=== PATIENT | male | born 1965 | race Caucasian/White ===

== ENCOUNTER → 2021-08-13 | Outpatient (CLI) | payer OTHER, SELFPAY ==
--- NOTE | 2021-08-13 | PROSBIL_PTH ---
PATIENT: VIRGEN DSOUZA V LOC: [facility] U#:[id number] AGE/SX: 56/M ROOM: RE08/13/[address]: Dr. Narinder Franks MD : 1965 BED: DIS: 08/13/2021 SPEC #: [id number] RECD: 08/14/21 10:25 STATUS: PARISH REPia #: [id number] ANN-MARIE: 08/13/21 00:[address]: Narinder Franks DEPT: SURGICAL PATHOLOGY RECD BY: Hao Aguirre ENTERED: 08/14/21 10:26 SP TYPE: PROST BX OT DR: CLARENCE Tavares Tissues: A - PROSTATE RIGHT B - PROSTATE RIGHT C - PROSTATE RIGHT D - PROSTATE LEFT E - PROSTATE LEFT F - PROSTATE LEFT Procedures: PROSTATE BX HEADER OPERATION: Prostate biopsy PRE-OP DIAGNOSIS: Elevated PSA TISSUE SUBMITTED: A - Right apex, B - Right mid, C - Right base, D - Left apex, E - Left mid, F - Left base MICROSCOPIC DIAGNOSIS A. Right prostate, apex, core biopsy: Adenocarcinoma. [place] grade: 9 (5+4) Cores involved: 1 out of 1 core Tissue involved: 95% Greatest tumor length: 7.5 millimeters Perineural invasion: Present B. Right prostate, mid, core biopsy: Adenocarcinoma. [place] grade: 9 (5+4) Cores involved: 1 out of 1 core Tissue involved: 80% Greatest tumor length: 9.5 millimeters Perineural invasion: Present C. Right prostate, base, core biopsy: Adenocarcinoma. [place] grade: 8 (5+3) Cores involved: 1 out of 1 core Tissue involved: 65% Greatest tumor length: 3.5 millimeters D. Left prostate, apex, core biopsy: Chronic inflammation. See comment. E. Left prostate, mid, core biopsy: Mild chronic inflammation. F. Left prostate, base, core biopsy: Focal atypical small acinar proliferation. Chronic inflammation. See comment. AM:deisi 08/15/2021 COMMENT D & F. Immunohistochemistry ([id number]) supports the above diagnosis. MICROSCOPIC DESCRIPTION Slides are reviewed. GROSS DESCRIPTION A - Received is one container designated prostate, right apex. The specimen consists of one elongated fragment of light waggoner-white soft tissue measuring 1 cm in length and 0.1 cm in diameter. The specimen is totally submitted in one cassette. B - Received is one container designated prostate, right mid. The specimen consists of one elongated fragment of light waggoner-white soft tissue measuring 1 cm in length and 0.1 cm in diameter. The specimen is totally submitted in one cassette. C - Received is one container designated prostate, right base. The specimen consists of one elongated fragment of light waggoner-white soft tissue measuring 0.6 cm in length and 0.1 cm in diameter. The specimen is totally submitted in one cassette. D - Received is one container designated prostate, left apex. The specimen consists of one elongated fragment of light waggoner-white soft tissue measuring 0.8 cm in length and 0.1 cm in diameter. The specimen is totally submitted in one cassette. E - Received is one container designated prostate, left mid. The specimen consists of one elongated fragment of light waggoner-white soft tissue measuring 1.5 cm in length and 0.1 cm in diameter. The specimen is totally submitted in one cassette. F - Received is one container designated prostate, left base. The specimen consists of one elongated fragment of light waggoner-white soft tissue measuring 1 cm in length and 0.1 cm in diameter. The specimen is totally submitted in one cassette. / AM:deisi 08/15/2021 TC:0 [facility]: [id number] [phone]
--- NOTE | 2021-08-13 | IMM_PTH ---
PATIENT: VIRGEN DSOUZA V LOC: [facility] U#:[id number] AGE/SX: 56/M ROOM: RE08/13/[address]: Dr. Narinder Franks MD : 1965 BED: DIS: 08/13/2021 SPEC #: [id number] RECD: 08/15/21 14:19 STATUS: PARISH REQ #: [id number] ANN-MARIE: 08/13/21 00:[address]: Narinder Franks DEPT: IMMUNOHISTOCHEMISTRY RECD BY: Alyssa Starr ENTERED: 08/15/21 14:20 SP TYPE: IMMUNO OTHR DR: CLARENCE Tavares Tissues: D - PROSTATE LEFT F - PROSTATE LEFT Procedures: 34BE12 (add) P40 (add) 34BE12 (initial) PHYSICIAN & INSTITUTION [place] [address] SPECIMEN INFORMATION: Tissue Source: D - Left prostate, apex, core biopsy, F - Left prostate, base, core biopsy Clinical Info: Elevated PSA Specimen Number: [id number] D & F CPT code: 61042, 76948 x3 METHODOLOGY: Deparaffinized sections of prefer/formalin-fixed tissue or PAP/DQ stained slides are incubated with monoclonal/polyclonal antibodies/oligonucleotide probes. Localization is made via biotin free immunoperoxidase method. Appropriate controls are performed and reacted as expected. Results on target cell population are indicated in the following table: RESULTS: ANTIBODY / CLONE RESULT Block D P40 (BC28) positive 34BE12 (34BE12) positive Block F P40 (BC28) negative 34BE12 (34BE12) negative These tests were developed and their performance characteristics determined by [facility]. They may not have been cleared or approved by the U.S. Food and Drug Administration. The FDA has determined that such clearance or approval is not necessary. The above immunohistochemical/dualISH markers are ordered and reviewed by the Pathologist. INTERPRETATION: D. Left prostate, apex, core biopsy: Benign prostatic tissue. F. Left prostate, base, core biopsy: Focal atypical small acinar proliferation. AM:deisi 08/16/2021
== END | disposition home or self-care (01) ==
LOC: LABSPEC 16:56
PROVIDERS: PCP Physician Assistant; Visit Provider Urology
DX: C61 Malignant neoplasm of prostate (principal)
CPT/HCPCS: 88305; 88341; 88342; G0416

== ENCOUNTER → 2021-08-28 | Outpatient (CLI) | payer OTHER, SELFPAY ==
--- NOTE | 2021-08-28 09:22 | NM_ITS ---
CLINICAL: Male, 56 years old. PROSTATE CA NEW DX -- *PT VOIDED JUST BEFORE SCAN* -- OPEN HEART ON 08-29-2020 -- FX LEFT HEEL WHOLE BODY NUCLEAR BONE SCAN TECHNIQUE: Following the IV administration of 20.1 mCi of Tc MDP, whole body bone imaging was performed with a gamma camera following a three hour delay. FINDINGS: Low-level increased uptake is seen at both knee joints and shoulder joints as well as the sternal clavicular joints suggestive of degenerative changes. Distended urinary bladder. NM/Bone Scan Whole Body IMPRESSION: No evidence of bony metastasis. Distended urinary bladder. Electronically Signed: Donald Lovelace MD at 14:21 EDT ,
== END | disposition home or self-care (01) ==
LOC: NM 09:13
PROVIDERS: PCP Family Medicine; Visit Provider Urology
DX: C61 Malignant neoplasm of prostate (principal)
CPT/HCPCS: 78306; A9503

== ENCOUNTER → 2021-09-02 | Outpatient (CLI) | payer OTHER, SELFPAY ==
--- NOTE | 2021-09-02 13:21 | CT_ITS ---
STUDY: CT Abdomen And Pelvis W/ Contrast Injection 09/02/2021 2:11 PM REASON FOR EXAM: Male, 56 years old. Abdominal pain MALIGNANT NEOPLASM OF PROSTATE Individualized dose optimization techniques were used for this CT. COMPARISON: None. TECHNIQUE: CT Abdomen And Pelvis W/ Contrast Injection IV 75mL Isovue-370 FINDINGS: There are atherosclerotic calcifications of visualized coronary arteries. The visualized portions of the heart are within normal limits. Multiple median sternotomy wires are noted consistent for cardiac surgery. 10 mm hypoechoic density in the caudate lobe of the liver. ACR White Paper guidelines (Byron, et al. JACR 2017; 14(11):3627-5363.) suggest the following. For patients with low risk of malignancy, no further follow-up is necessary. For patients with high risk of malignancy (known malignancy with a propensity to metastasize to the liver, cirrhosis, and/or other hepatic risk factors), recommend follow-up abdominal CT or MR in 6 months. Normal gallbladder and extrahepatic biliary system. Normal spleen. Normal pancreas. Normal bilateral adrenal glands. No acute findings of the right kidney. Cortical scarring of the left kidney. Normal visualized stomach. Normal small intestine. There are multiple colonic diverticula consistent with diverticulosis. The appendix is visualized and appears normal. There are calcifications of the abdominal aorta. This is consistent for atherosclerotic disease. There is 22mm abdominal aortic aneurysm. Se 602 IM91. Vascular workup can be obtained based on clinical correlation. Normal inferior vena cava. Subcentimeter mesenteric lymph nodes. Normal urinary bladder. There are prostatic calcifications. There is an umbilical hernia containing fat. There are diffuse degenerative changes of the visualized lumbar spine. There is a right-sided inguinal hernia containing adipose tissue. CT/Abdomen/Pelvis W IV Cont ONLY IMPRESSION: (NOT LISTED IN ORDER OF SIGNIFICANCE) 22mm abdominal aortic aneurysm 10 mm hypoechoic density in the caudate lobe of the liver. ACR White Paper guidelines (Byron, et al. JACR 2017; 14(11):8131-2656.) suggest the following. For patients with low risk of malignancy, no further follow-up is necessary. For patients with high risk of malignancy (known malignancy with a propensity to metastasize to the liver, cirrhosis, and/or other hepatic risk factors), recommend follow-up abdominal CT or MR in 6 months. Other findings as above. Electronically Signed: Marito Reddy MD at 14:16 EDT ,
[2021-09-02 13:31] LABS: EGFR FINGERSTICK > 60.0000 mL/min (>60)
== END | disposition home or self-care (01) ==
LOC: CT 13:20
PROVIDERS: PCP Family Medicine; Referring Provider Urology; Visit Provider Urology
DX: C61 Malignant neoplasm of prostate (principal)
CPT/HCPCS: 74177; Q9967

== ENCOUNTER 2021-10-09 12:31 | Observation (INO) | payer OTHER, SELFPAY ==
--- NOTE | 2021-10-03 12:38 | EKG12_ITS ---
Test Reason : PRE OP Blood Pressure : / mmHG Vent. Rate : 065 BPM Atrial Rate : 065 BPM P-R Int : 202 ms QRS Dur : 096 ms QT Int : 420 ms P-R-T Axes : 033 145 119 degrees QTc Int : 436 ms Suspect unspecified pacemaker failure Normal sinus rhythm Left posterior fascicular block Inferior infarct , age undetermined Anteroseptal infarct , age undetermined Abnormal ECG Confirmed by DEEP MCKEON, CLEMENTINA ([id number]), editor in chief PAIGE MOJICA ([id number]) on 10/04/2021 7:48:01 AM Referred By: Narinder Franks Confirmed By:CLEMENTINA ADAME MD
[2021-10-03 13:31] LABS: Hematocrit 46.3 % (40-54); Hemoglobin 15.7 g/dL (13.0-16.5); Mean Corp Hgb Conc 33.9 g/dL (32-36); Mean Corpuscular Hgb 33.5 pg (27.0-32.0); Mean Corpuscular Volume 98.7 fL (80-94); Mean Platelet Vol. 9.3 fl (6.2-12.0); Platelet Count 242 K/mm3 (150-450); RBC Distribution Width CV 11.9 % (11.6-14.6); Red Blood Count 4.69 M/mm3 (4.6-6.2); White Blood Count 7.6 K/mm3 (4.4-11.0)
[2021-10-03 13:45] LABS: Anion Gap 5 (5-15); BUN 21 mg/dL (7-18); BUN/Creat Ratio 19.3 RATIO (10-20); Calcium,Total 9.1 mg/dL (8.5-10.1); Chloride 104 mmol/L (98-107); Creatinine, Serum 1.09 mg/dL (0.70-1.30); EST Glomerular Filtration Rate 74 mL/min (>60); Est Glom Filt Rate - Afr Amer 90 mL/min (>60); Glucose 109 mg/dL (74-106); Potassium 3.8 mmol/L (3.5-5.1); Sodium Level 138 mmol/L (136-145)
[2021-10-09] VITALS (14 sets, daily range): BP systolic 81–129; BP diastolic 54–76; PULSE 62–85; RESP 16–18; TEMP 36.4–37.1; O2SAT 92–100; BMI 33.7
--- NOTE | 2021-10-09 | IMM_PTH ---
PATIENT: VIRGEN DSOUZA V LOC: [facility] U#:[id number] AGE/SX: 56/M ROOM: OH310 RE10/09/[address]: Dr. Narinder Franks MD : 1965 BED: 1 DIS: 10/10/2021 SPEC #: [id number] RECD: 10/11/21 12:07 STATUS: PARISH REPia #: [id number] ANN-MARIE: 10/09/21 00:[address]: Narinder Franks DEPT: IMMUNOHISTOCHEMISTRY RECD BY: Alyssa Starr ENTERED: 10/11/21 12:08 SP TYPE: IMMUNO OTHR DR: MD Dr. Benton Aburto MD Tissues: C - Prostate, NOS Procedures: CD31 (initial) FACTOR VIII (add) PHYSICIAN & INSTITUTION [place] [address] SPECIMEN INFORMATION: Tissue Source: C - Prostate Clinical Info: Prostate cancer Specimen Number: [id number] C11 CPT code: 99768, 86539 METHODOLOGY: Deparaffinized sections of prefer/formalin-fixed tissue or PAP/DQ stained slides are incubated with monoclonal/polyclonal antibodies/oligonucleotide probes. Localization is made via biotin free immunoperoxidase method. Appropriate controls are performed and reacted as expected. Results on target cell population are indicated in the following table: RESULTS: ANTIBODY / CLONE RESULT Block C11 CD31 ([place]/70A) noncontributory Factor VIII (R Ag) negative These tests were developed and their performance characteristics determined by [facility]. They may not have been cleared or approved by the U.S. Food and Drug Administration. The FDA has determined that such clearance or approval is not necessary. The above immunohistochemical/dualISH markers are ordered and reviewed by the Pathologist. INTERPRETATION: Prostate, radical prostatectomy: Negative for angiolymphatic invasion. LANDON:deisi 10/14/2021
[2021-10-09] MEDS: Lactated Ringers 1,000 ML 15 ML IV ×3 (06:12→14:03)
[2021-10-09] MEDS: Bupivacaine 0.25% 30 ML Vial (07:05)
--- NOTE | 2021-10-09 07:30 | PROST_PTH ---
PATIENT: VIRGEN DSOUZA V LOC: [facility] U#:[id number] AGE/SX: 56/M ROOM: WV310 RE10/09/[address]: Dr. Narinder Franks MD : 1965 BED: 1 DIS: 10/10/2021 SPEC #: [id number] RECD: 10/09/21 15:54 STATUS: PARISH FRAGOSO #: [id number] ANN-MARIE: 10/09/21 07:[address]: Narinder Franks DEPT: SURGICAL PATHOLOGY RECD BY: Caren Gonzalez ENTERED: 10/10/21 07:20 SP TYPE: PROSTATE OTHR DR: MD Dr. Benton Aburto MD Tissues: A - LYMPH NODE BIOPSY B - LYMPH NODE BIOPSY C - Prostate, NOS Procedures: Surgery Specimen Level IV Surgery Specimen Level HEADER OPERATION: Lap robotic prostatectomy, nerve monitoring PRE-OP DIAGNOSIS: Prostate cancer TISSUE SUBMITTED: A - Right pelvic lymph node packet, B - Left pelvic lymph node packet, C - Prostate MICROSCOPIC DIAGNOSIS A. Right pelvic lymph node packet, excision: Five out of five lymph nodes, negative for metastatic carcinoma. B. Left pelvic lymph node packet, excision: One lymph node, negative for metastatic carcinoma. C. Prostate, radical prostatectomy: Prostatic adenocarcinoma. See cancer summary in the comment section. SJ:deisi 10/11/2021 COMMENT PROSTATE CANCER (RADICAL) SUMMARY: Procedure: Radical Prostatectomy Prostate Size: Weight: 45 gm Size: 4 cm transversely, 4 cm anterior-posteriorly and 3.5 cm craniocaudally Histologic Type: Acinar adenocarcinoma Histologic Grade: Grade group 4 (Aviva score 5+3=8) Percentage of Pattern 4: ~10% Tumor Quantitation: The tumor involves both right and left lobes. The tumor extensively involves the right lobe, apical, mid and basal portion, and about 80% of the right lobe and measures approximately 3.3 x 2.3 x 1.6 cm and tumor involves left lobe about 10% of the prostate lobe. It involves apical, mid and basal portion of prostate in discontinuous fashion. The largest focus measures 2 x 1.2 cm. Extraprostatic Extension: Present, focal (focus of extraprostatic extension measures about 0.8 cm in greatest dimension. The location of extraprostatic extension: right posterior lateral adjacent to neurovascular bundle. Urinary Bladder Neck Invasion: Not seen Seminal Vesicle Invasion: suspected, focal, left seminal vesicle. Lymphvascular Invasion: not identified. Perineural Invasion: Present and frequent. Margins: Involved by invasive carcinoma, limited. Linear length of positive margin - ~ 1 mm Location of positive margin: Right apical [place] grade positive margin: Pattern 3 Treatment effect: No known presurgical therapy. Regional Lymph Nodes: Number of lymph nodes involved: 0 Number of lymph nodes examined: 6 Additional Pathologic Findings: Benign nodular prostatic hyperplasia. - Chronic inflammation. - Focal high-grade prostatic intraepithelial neoplasia (HGPIN). - detached pieces of adipose tissue, negative for carcinoma. Ancillary studies: Please see IHC report ([id number]) PATHOLOGIC STAGE: pT3a pN0 pMx The above summary is in compliance with [employer] [place] [employer] (CAP) Cancer Protocols Checklist and [place] Joint Committee on Cancer (AJCC), Staging Manual, 8th Ed. Please make reference to previous specimen ([id number]) right prostate apex, mid and base, core biopsies with diagnosis of ?adenocarcinoma? and left prostate base, core biopsy with diagnosis of ?focal atypical small acinar proliferation.? This case was reviewed and diagnosis discussed with Dr. Turner on 12/31/2021. Case has been reviewed in consultation with Dr. Munguia who concurs with the above diagnosis. IDC:AM MICROSCOPIC DESCRIPTION Slides are reviewed. GROSS DESCRIPTION A - Received in fixative is one container labeled with the patient's name and designated right pelvic lymph node packet. The specimen consists of multiple pieces of waggoner-yellow adipose tissue containing nodule measuring 5 x 4 x 1 cm. One nodule consistent with lymph node is noted measuring 2.5 cm in greatest dimension. The entire specimen is submitted in five cassettes as follows: 1 & 2 ? one bisected lymph node, 3-5 ? rest of the specimen. B - Received in fixative is one container labeled with the patient's name and designated left pelvic lymph node packet. The specimen consists of a piece of yellow adipose tissue measuring 3 x 3.5 x 0.5 cm. No obvious lymph node is identified. The entire specimen is submitted in two cassettes. C - Received in fixative is one container labeled with the patient's name and designated prostate. The specimen consists of a radical prostatectomy specimen consisting of prostate and bilateral seminal vesicles weighing 45 gm. Also present in the container are multiple pieces of detached adipose tissue measuring in aggregate 5 x 3.5 x 1 cm. Sections of adipose tissue do not reveal any mass lesion. The prostate measures 4 cm transversely, 4 cm anterior-posteriorly and 3.5 cm craniocaudally. The right seminal vesicle measures 3 x 1.5 x 0.7 cm and right vas deferens measures 2.5 cm in length and 0.5 cm in diameter. The left seminal vesicle measures 2.5 x 1 x 1 cm and the left vas deferens measures 2.5 cm in length and 0.5 cm in diameter. The prostate is inked as follows: anterior surface - yellow, posterior surface - black, right lateral surface - blue, left lateral surface - green. The bilateral seminal vesicles and vas deferens are also inked as follows: Posterior surface bilateral seminal vesicle and vas deferens - black, anterior surface right seminal vesicle and vas deferens - blue and anterior left seminal vesicle and vas deferens - green. Sections do not reveal any well-defined mass lesions. Spot Checker sections are submitted in 23 cassettes as follows: 1 - separate piece of adipose tissue, 2 - right seminal vesicle and vas deferens, 3 - left seminal vesicle and vas deferens, 4 - apical/urethral margin, enface, 5 & 6 - basal portion of prostate, enface, 7-11 - apical portion prostate, 12-15 - middle portion prostate, 16-23 - basal portion prostate. / SJ:rg 10/10/2021 TC:0 CPT: 57967 x2, 44490
[2021-10-09] MEDS: Cefazolin 2 GM in 0.9% Normal Saline 100 ML IV (07:58)
--- NOTE | 2021-10-09 12:34 | PCM.HP.STD ---
[facility] - General General Date of Admission: 10/09/21 Chief Complaint: Prostate cancer [facility] Narrative VIRGEN DSOUZA, is a 56 M who presents presents for radical prostatectomy for Aviva 9 high-grade prostate cancer [facility] Medical History (Updated 10/09/21 @ 12:[address] Narinder Franks MD) Alcohol use Arthritis CAD (coronary artery disease) Cancer Cardiology follow-up encounter Chewing tobacco use CHF (congestive heart failure) High cholesterol History of echocardiogram History of stress test Hypertension Shortness of breath on exertion Home Medications acetaminophen 650 mg tablet,extended release 1,300 mg PO Q12H 10/02/21 [History Last Taken Unknown] aspirin 81 mg tablet,delayed release 1 tab PO DAILY 10/02/21 [History Last Taken 10/01/21] atorvastatin 80 mg tablet 1 tab PO DAILY 10/02/21 [History Last Taken Unknown] cholecalciferol (vitamin D3) 25 mcg (1,000 unit) tablet (Vitamin D3) 25 mcg PO DAILY 10/02/21 [History Last Taken Unknown] furosemide 40 mg tablet 40 mg PO DAILY 10/02/21 [History Last Taken Unknown] metoprolol succinate 25 mg tablet,extended release 24 hr 1 tab PO BID 10/02/21 [History Last Taken 10/09/21] multivitamin 1 tab PO DAILY 10/02/21 [History Last Taken Unknown] sacubitril 49 mg-valsartan 51 mg tablet (Entresto) 1 tab PO BID 10/02/21 [History Last Taken 10/09/21] spironolactone 25 mg tablet 12.5 mg PO DAILY 10/02/21 [History Last Taken Unknown] ciprofloxacin HCl 500 mg tablet (Cipro) 500 mg PO BID #14 tabs 10/09/21 [Rx Last Taken Unknown] docusate sodium 100 mg capsule (Colace) 100 mg PO BID #20 caps 10/09/21 [Rx Last Taken Unknown] oxycodone-acetaminophen 5 mg-325 mg tablet 1 tab PO Q6H PRN pain 7 days #14 tabs 10/09/21 [Rx Last Taken Unknown] Allergy/AdvReac Type Severity Reaction Status Date / Time No Known Allergies Allergy Verified 10/09/21 07:22 Surgical History (Updated 10/02/21 @ 10:28 by Michelle Burch) History of implantable cardiac defibrillator (ICD) Hx of CABG Social History Smoking Status: Never smoker Vital Signs Vital Signs Vital Signs: 10/09/21 06:08 10/09/21 06:08 Temperature 98.0 F Temperature Source Temporal Pulse Rate 62 Respiratory Rate 16 Respiratory Pattern Normal Blood Pressure 129/76 H Blood Pressure Mean 93 Blood Pressure Source Monitor Blood Pressure Position Semi-Fowlers Blood Pressure Location Right Arm Pulse Ox 96 Oxygen Delivery Method Room Air Weight Weight: 106.594 kg Body Mass Index (BMI) 33.7 Results Lab / Micro Data Result Diagrams: 10/03/21 12:53 10/03/21 12:53 Assessment & Plan Assessment/Plan (1) Cancer:
--- NOTE | 2021-10-09 12:35 | DCINST_ITS ---
Discharge Instructions Diet Discharge Diet: No restrictions, Light diet - advance as tolerated and Soft diet Activity Discharge Activity: May Not Drive and May Shower Dressing / Incision Call your doctor if your incision/area has: Continuous Slow Oozing, Sudden Increased Bleeding, Increased Pain/ Swelling and Foul Smelling Discharge Call your doctor if you observe: Fever of 101 or Higher Suture Line Care: Avoid Pulling/Pushing and Avoid Pinching/Bending Cleanse incision/area with: Keep Dressing Clean & Dry Catheter: Mcnally to leg bag and Mcnally to large bag Drain: [place] Follow Up Care Please Follow Up With: Narinder Franks MD When: 2 weeks Test Results: Test results from this visit will be discussed in further detail at your follow- up appointment, if applicable. Discharge Plan Admission Primary Reason for Your Visit: radical prostatectomy Attending Provider: Narinder Franks Primary Care Provider: Benton Soto Consulting Providers: Ethan Upton Instructions Patient Instructions: Radical Prostatectomy Dc Discharge Orders/Prescriptions Prescriptions: New ciprofloxacin HCl [Cipro] 500 mg tablet 500 mg PO BID Qty: 14 0RF docusate sodium [Colace] 100 mg capsule 100 mg PO BID Qty: 20 0RF oxycodone-acetaminophen 5-325 mg tablet 1 tab PO Q6H PRN (Reason: pain) 7 Days Qty: 14 0RF Continued multivitamin Tablet 1 tab PO DAILY Label Comments: TAKE 1 TABLET BY MOUTH ONCE DAILY furosemide 40 mg tablet 40 mg PO DAILY Label Comments: TAKE 1 TABLET BY MOUTH ONCE DAILY atorvastatin 80 mg tablet 1 tab PO DAILY Label Comments: TAKE 1 TABLET BY MOUTH ONCE DAILY spironolactone 25 mg tablet 12.5 mg PO DAILY Label Comments: TAKE 1/2 (ONE-HALF) TABLET BY MOUTH ONCE DAILY acetaminophen 650 mg Tablet Extended Release 1,300 mg PO Q12H metoprolol succinate 25 mg tablet extended release 24 hr 1 tab PO BID Label Comments: TAKE 1 TABLET BY MOUTH TWICE DAILY cholecalciferol (vitamin D3) [Vitamin D3] 25 mcg (1,000 unit) Tablet 25 mcg PO DAILY Entresto 49-51 mg tablet 1 tab PO BID Label Comments: TAKE 1 TABLET BY MOUTH TWICE DAILY Held aspirin 81 mg tablet,delayed release (DR/EC) 1 tab PO DAILY Hold Instructions: Resume on 10/23/21. Label Comments: TAKE 1 TABLET BY MOUTH ONCE DAILY Other Ambulatory Orders: 12 Lead EKG (Routine) Location: None Selected Ordered By: Dr. Ethan Upton Referrals / Follow Up: Narinder Franks MD [Med Staff - Active Staff] - Benton Soto MD [Primary Care Provider] - Disposition Disposition (needs filled in before D/C Order can be placed): Home, Self Care
--- NOTE | 2021-10-09 12:36 | PCM.OPRPT ---
Report of Operation Date of Procedure: 10/09/21 Pre-Operative Diagnosis: Prostate cancer Post-Operative Diagnosis: The same Surgery/Procedure Performed:: Laparoscopic robotic assisted radical prostatectomy, bilateral pelvic lymph node dissection, suture suspension of the urethra, EMG monitoring of pelvic nerves. Description of Surgical Findings:: Patient presented to the hospital for treatment of his prostate cancer with radical prostatectomy. In the preoperative setting we discussed the options of management for his prostate cancer including active surveillance, radiation treatments, radioactive seeds, and radical robotic prostatectomy. We discussed the side effects of surgery including the potential to lose erections. We discussed the potential to have bladder control problems with stress incontinence which can be temporary or permanent. We discussed the risk of the surgery including the risk of general anesthetic, risk of bleeding, risk of infection, and risk of formation of hernia either incisional hernia or inguinal hernia. After long discussion with the patient the preoperative setting and also reviewed this in the preop area patient signed the consent form and we proceeded with a radical prostatectomy. Patient was taken back to the operating room he was identified, time out procedure was performed and he was placed supine on the table he underwent general anesthesia with intubation. The abdomen was shaved prepped and draped in usual sterile fashion as well as the penis and testicles. A 16 Citizen [place] catheter was placed into the bladder with clear return of urine. I then made an incision in the umbilicus and dissected down to the fascia advance a Veress needle into the peritoneal cavity and insufflated the peritoneal cavity with CO2 gas. I then placed a 12 mm trocar above the umbilicus. I then visualized the placement of the rest of the trochars, I placed a right arm robotic trocar, and air seal trocar, a suction port 5 mm trocar. And on the left side I placed 2 robotic arms. Once all the trochars were in placed the patient was put in steep Trendelenburg. And the robot was docked the arms were docked and then I placed the 0 degree camera through the robotic arm and also used a 30 degree camera during certain parts of the case. I used scissors in the right arm, prograsp in the third arm, and a bipolar in the second arm. Initial dissection was to free the sigmoid colon off the lateral wall this was done by meticulously dissecting off the peritoneum and the sigmoid colon off the left lateral wall. This then allowed the prograsp to retract the sigmoid colon out of the pelvis. I then went below the bladder and identified the vas deferens incised the peritoneum over the vas deferens and traced the vas deferens below the bladder to the prostate and identified the right and left vasa deferens. Below behind the vas deferens then the seminal vesicles were identified. I then dissected the seminal vesicle free using pinpoint electrocautery and then we identified the other seminal vesicle and then dissected this using pinpoint electrocautery I then elevated the vas deferens and several vesicles off the prostate and was able to sweep the Denonvilliers' fascia off the prostate posteriorly all the way up to the apex of the prostate. Working laterally I made sure I went as lateral as possible to sweep the Denonilliers' fascia off the posterior aspect of the prostate and worked my way back, I then transected the vas deferens and the left and right side the seminal vesicles were then dissected free. And then I pulled out of the pelvis. At this point the bladder was dropped creating the space of Retzius with the bladder on traction with the fourth arm. Using electrocautery I dissected in the anterior peritoneal fascia and then created the space of Retzius dissecting towards the prostate. The pelvic lymph node dissection was then performed both on the left and the right pelvic lymph nodes the nodes that were taken on the right side extended from the right iliac artery lateral pelvic sidewall up to the junction of the artery and the lymph nodes and down to the obturator nerve and then also below the lithograph operator nerve all the lymph nodes were removed during to remove those lymph nodes we used clips and electrocautery to control small blood vessels and also the control lymphatic. I then went to the left side and again did an extensive lymph node dissection starting of the left iliac artery extending the left iliac vein on the lateral sidewall down to the obturator nerve and the left side beyond the lithograph operator nerve down further behind it cleaning out all the lymphatic tissue all this tissue was sent off as a specimen we use clips and electrocautery during the dissection. At the end we cleaned out all the lymphatic tissue on the right pelvic wall and no lymphatic tissue in the left pelvic wall. The prostate was then cleaned of the fat over the prostate and the fourth arm was used to retract the bladder and place traction. I then identified the endopelvic fascia that was overlying the prostate on the right side I incised endopelvic fascia and wwept the levator muscles off the prostate all the way to the apex on the right side, I then worked my way anterior to the prostate then transected to the puboprostatic ligament and the underlying dorsal vein complex was not injured. I then went to the other side and identified the endopelvic fascia in the left side incised in a fashion the left side and swept the levator muscles off the prostate on the left side all the way up to the apex the puboprostatic ligament on the left side was then dissected and transected I then freed up the fascia overlying the dorsal vein complex. I then used the prograsp to encircled the dorsal vein complex with the prograsp and then switched over to the right and left needle trolley coach driver and suture ligated the dorsal vein complex above the prograsp. The prograsp was then placed back in the bladder and put back on traction I then identified the junction between the bladder and the prostate and dissected down between the bladder and the prostate untilI came across the catheter we then dissected posteriorly to the bladder and prostate to free the prostate and the bladder off each other and the muscles between the bladder and the prostate was then cauterized to free up the bladder. I then went on top of the prostate and identified the endopelvic fascia on top of the prostate this was incised all the way to the apex and then we swept the endopelvic fascia off the prostate laterally and then identified the plane between endopelvic fascia and the prosthetic pseudocapsule and swept the fascia laterally until reaching the course of the neurovascular bundles and then released the neurovascular bundles off the prostate laterally all the way back in a retrograde fashion back to the junction of the pedicles then the prostate was placed on traction with the fourth arm pulling the prostate laterally identified the pedicle to the prostate between the seminal vesicles and the and the neurovascular bundle and this was taken using sequential small hemolocks. After the pedicle was taken the I then dissected underneath the prostate sweeping the neurovascular bundle off the prostate we able to follow the nice smooth plane between the neurovascular bundle and the pseudocapsule all the way to the apex once this was identified we swept this up all the way up to the apex and there was perfect nerve sparing on the right side. Then went to the left side the prostate identified the endopelvic fascia over the left side of the prostate I incised the endopelvic fascia all the way to the apex and then swept this off laterally I then released the neurovascular bundles on the left side of the prostate sweeping him off the prostate laterally I then elevated the prostate up up with the prostate and traction identified the pedicle to the prostate on the left side and then the pedicles taken with sequential Hem-o-odilon clips I then was able to dissected the neurovascular bundle off the left posterior aspect the prostate this was a perfect dissection all the way up on the left side following the pseudocapsule all the way up the left side until we reached the apex of the prostate. Prior to the nerve dissection on both sides the EMG electrodes were introduced into the abdomen we identified the action potential of the nerve bundle on the left side and the action potential of the nerve bundle in the right side the neurovascular bundles have been dissected out as described below I then checked the EMG electrodes again after the dissection and they were still intact demonstrated good sparing of the pelvic nerves on dissection. After the EMG electrodes were were done week recorded the electrode findings and this was recorded the neurovascular bundles has been swept off the posterior to the prostate I then went above and transected the dorsal vein complex there was minimal to no bleeding but then dissected down to the urethra and circumfencial dissected around the urethra I then switched the right and left arm with the needle drivers and I suture-ligated the dorsal vein complex again just to ensure that there was no bleeding from the dorsal vein complex. I then transected through the urethra with scissors and the prostate was then freed and released off the prostate bed and put an Endo Catch bag. At this point the bladder neck was reconstructed and then an anastomosis was performed between the prostate and the bladder with a 3 oh V-Loc stitch in a running fashion starting from the bladder neck at the 6 o'clock position working to the 12 o'clock position with continuous stitches to complete a perfect anastomosis between the bladder and the prostate. I then placed a new catheter into the bladder, an 18 Citizen [place] tip catheter flushed the bladder and there was no leakage from the anastomosis I put 10 cc in the balloon and pulled it up pulled back gently. I then ensured that there was no bleeding from the dorsal vein complex no bleeding from the neurovascular bundles FloSeal was placed as necessary once hemostasis was ensured and adequate then I placed the bladder back in position in the pelvis the prostate was exchanged to the camera port I closed the air seal port with a 10 12 Chuy Flowers stitch. And the extracted the prostate through the umbilicus. The robot was undocked all the ports were removed under direct visualization then closed the extraction site with 0 Vicryl with a CT1 needle once the extraction site was closed. I then closed all the incision with subcuticular stitches with 4-0 Monocryl and then bandages were placed on the incisions catheter was flushed to make sure it was draining well there was no clots and it was crystal clear patient's anesthetic was reversed he was extubated and taken back to the PACU in stable condition all the needles and sponges and instruments were accounted for. Blood loss was minimal and the drain was a 18 Citizen [place] Mcnally catheter. No other surgical drain was left. I was present during the entire case. Surgeon: Narinder Franks Type of Anesthesia: General Specimen's removed: Prostate and pelvic lymph nodes Drains: 20 Citizen [place] Mcnally Complications None Admit VTE Documentation VTE Present on Admission: No VTE Mechan Device Prophylaxis: SCD's
[2021-10-09] MEDS: Metoprolol(XL)Succ 25 MG Tablet PO (20:37)
[2021-10-09] MEDS: SACUBITRIL/VALSARTAN 49-51 MG TABLET 1 EACH PO (20:37)
[2021-10-09] MEDS: Atorvastatin Calcium 80 MG Tablet PO (20:39)
[2021-10-09] MEDS: Acetaminophen 325 MG Tablet 1300 MG PO (20:40)
[2021-10-10 02:18] VITALS: BP 99/65; PULSE 65; RESP 16; TEMP 36.5; O2SAT 94
[2021-10-10 06:30] VITALS: BP 98/54; PULSE 65; RESP 16; TEMP 36.6; O2SAT 95
[2021-10-10 07:43] VITALS: BP 100/55; PULSE 76; RESP 16; TEMP 36.6; O2SAT 98
[2021-10-10 08:00] VITALS: PULSE 85; RESP 16
[2021-10-10] MEDS: Multivitamins,Therapeutic Tablet 1 TABLET PO (09:07)
[2021-10-10] MEDS: Spironolactone 25 MG Tablet 12.5 MG PO (09:07)
[2021-10-10] MEDS: Furosemide 40 MG Tablet PO (09:07)
[2021-10-10 09:08] VITALS: BP 100/64; PULSE 85
[2021-10-10] MEDS: Metoprolol(XL)Succ 25 MG Tablet PO (09:08)
[2021-10-10] MEDS: Acetaminophen 325 MG Tablet 1300 MG PO (09:12)
[2021-10-10] MEDS: SACUBITRIL/VALSARTAN 49-51 MG TABLET 1 EACH PO (09:12)
[2021-10-10 09:43] VITALS: BP 100/64; PULSE 85; RESP 14; TEMP 36.7; O2SAT 97
== END 2021-10-10 14:05 | disposition home or self-care (01) ==
LOC: MS3 12:31 → SDC 12:58 → MS3 12:58
PROVIDERS: Anesthesiology; Admitting Provider Urology; PCP Family Medicine; Referring Provider Urology; Visit Provider Urology
PROC: 0VT04ZZ Resection of Prostate, Percutaneous Endoscopic Approach (ICD-10-PCS; CPT 55866; principal; 2021-10-09 07:10)
DX: C61 Malignant neoplasm of prostate (principal); I11.0 Hypertensive heart disease with heart failure; I50.9 Heart failure, unspecified; I25.10 Atherosclerotic heart disease of native coronary artery without angina pectoris; E78.00 Pure hypercholesterolemia, unspecified; M19.90 Unspecified osteoarthritis, unspecified site; Z79.899 Other long term (current) drug therapy; Z79.82 Long term (current) use of aspirin; F17.220 Nicotine dependence, chewing tobacco, uncomplicated; Z95.1 Presence of aortocoronary bypass graft; Z95.810 Presence of automatic (implantable) cardiac defibrillator
CPT/HCPCS: 55866; 00865; 36415; 80048; 85027; 88305; 88309; 88341; 88342; 93005; 99218; J7120; G0378; J2405; J3490

== ENCOUNTER → 2021-12-05 | Outpatient (CLI) | payer OTHER, SELFPAY | END | disposition home or self-care (01) | LOC: LAB 11:17 | PROVIDERS: PCP Family Medicine; Visit Provider Urology | DX: C61 Malignant neoplasm of prostate (principal) | CPT/HCPCS: 36415; 84153 ==

== ENCOUNTER → 2021-12-18 | Outpatient (CLI) | payer OTHER, SELFPAY ==
--- NOTE | 2021-12-18 11:00 | PET_ITS ---
EXAMINATION: F18 Pylarify PET-CT INDICATIONS: A 56 year old male with history of primary prostate carcinoma presenting for restaging examination. COMPARISON EXAMINATION: None available INDEX LESION SIZE SUV PROMISE SCORE INTERPRETATION Right internal and external iliac 8.5 mm largest 8.3 max Approximately 2 Fulfills quantitative criteria for viable neoplasm. Eleventh thoracic vertebra, coccyx 8.6 Approximately 2 High likelihood of viable osseous neoplasia. TECHNIQUE: Following the intravenous administration of 5.4 mCi of PSMA-Pylarify via the, image acquisitions of the head, neck, chest, abdomen and pelvis to the level of the mid thigh at 73 minutes post-tracer distribution reveal: The examination was interpreted using the EANM (Daniele et al., Journal of Nuclear Medicine Molecular Imaging 44:1622, 2017) and PROMISE (Eiromán et al., Journal of Nuclear Medicine 59:469, 2018) interpretive criteria. HEIGHT: 70 inches. WEIGHT: 230 lbs. PSMA expression score PROMISE criteria: High (3): SUV ? parotid-salivary gland, intermediate (2): SUV ? liver, low (1): > blood pool, < liver, (0): < blood pool. SUV reference values: Parotid glands: 22.2 Normal liver parenchyma 10.5 Blood pool 2.1 FINDINGS: Head/Neck: There is physiologic tracer defined in the submandibular and parotid glands. Uptake is noted in the nasal cavity consistent with physiologic tracer uptake. The visualized portion of the cranial vault demonstrates no scintigraphic abnormalities. The visualized portion of the cerebral cortical-subcortical structures demonstrate symmetric and preserved glucose metabolism. CHEST: There are no parenchymal densities-nodules defined in the right and left hemithorax with an increase in radiopharmaceutical concentration. Bilateral axillary soft tissue densities are ametabolic. Pertinent chest CT findings are as follows. There is atherosclerotic calcification defined in the thoracic aorta without evidence of dilatation-aneurysm formation. Coronary arterial calcification is observed. Mediastinal soft tissue densities demonstrate no evidence of increased tracer uptake. Calcification is defined in the retrosternal region. Ventricular pacemaker placement is defined. Abdomen/Pelvis: There are two separate foci of enhanced radiopharmaceutical noted in the right lower pelvic mesentery in what appears to be the right internal and external iliac lymph node basin. The calculated maximum standard uptake value is 8.3 with a PROMISE score of approximately 2 and the largest metabolic, morphologic abnormality demonstrates a maximum axial diameter of 8.5 mm. Normal physiologic distribution of the radiopharmaceutical is apparent in the hepatic and splenic parenchyma, both renal units, urinary bladder and visualized intestinal tract. Diffuse radiopharmaceutical concentration is noted in all four quadrants of the abdomen and pelvis. There is pooling of radiopharmaceutical noted in the prostatic urethra bed. Pertinent abdomen and pelvis CT findings are as follows. A fat containing ventral hernia is noted. Colonic diverticulosis is observed without evidence of diverticulitis. There is atherosclerotic calcification defined in the abdominal aorta without evidence of dilatation-aneurysm formation. Abdominal and pelvic arterial calcification is observed. A fat containing right inguinal hernia is noted. Right and left inguinal soft tissue densities are non Pylarify avid. Skeletal: An increase in tracer concentration is noted in the coccyx in the midline and eleventh thoracic vertebra involving the pedicle to the right of the midline. The calculated maximum standard uptake value is 8.6. The PROMISE score is approximately 2. PET/PET/CT Tumor Base -Thigh Subs IMPRESSION: 1. ABNORMAL EXAMINATION INDICATIVE OF A HIGH LIKELIHOOD OF MALIGNANT-VIABLE NEOPLASM. 2. Enhanced radiopharmaceutical concentration noted in both the right internal and external iliac lymph node basins are consistent with probable neoplastic transformation. (Eiber et al., Journal of Nuclear Medicine 59:469, 2018). 3. Enhanced tracer uptake noted in the eleventh thoracic vertebra and coccyx are consistent with a high likelihood of osseous neoplasia. Electronic Signature Chon Valdez D.O. Electronically Signed: Chon Valdez, at 8:22 EDT ,
== END | disposition home or self-care (01) ==
PROVIDERS: PCP Family Medicine; Referring Provider Urology; Visit Provider Urology
DX: C61 Malignant neoplasm of prostate (principal)
CPT/HCPCS: 78815; A9595

== ENCOUNTER → 2021-12-30 | Outpatient (CLI) | payer OTHER, SELFPAY ==
[2021-12-30 17:21] LABS: PSA,Total- Diagnostic 6.34 ng/mL (0.0-4.0)
== END | disposition home or self-care (01) ==
LOC: LAB 16:37
PROVIDERS: PCP Family Medicine; Referring Provider Urology; Visit Provider Urology
DX: C61 Malignant neoplasm of prostate (principal)
CPT/HCPCS: 36415; 84153

== ENCOUNTER → 2022-01-13 | Outpatient (CLI) | payer OTHER, SELFPAY ==
--- NOTE | 2022-01-13 09:12 | NM_ITS ---
CLINICAL: 56-year-old male with history of carcinoma of the prostate. WHOLE BODY 99m Tc MDP RADIONUCLIDE BONE SCINTIGRAPHY COMPARISON: Previous bone scintigraphy study dated 08/28/2021. FINDINGS: Following the intravenous administration of 25.6 mCi of 99m Tc MDP, whole body bone images reveal: 1. Persistent increased tracer uptake is noted in the 11th thoracic vertebra posteriorly in the midline, newly visualized in the first lumbar vertebra posteriorly on the right, currently defined in the posterior midline sacrum. 2. Enhanced tracer uptake is noted in the acromioclavicular and sternoclavicular compartments of both shoulders, the knee articulations bilaterally. 3. The remaining skeletal structures are scintigraphically unremarkable with normal-appearing renal images and urinary bladder activity identified. NM/Bone Scan Whole Body IMPRESSION: 1. Redefined increased radiopharmaceutical concentration demonstrated in the 11th thoracic vertebra, newly apparent in the first lumbar vertebra and presently visualized in the midline sacrum may be further investigated with plain film radiography in the setting of known prostate carcinoma. 2. 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 3. Overall compared to the previous whole body bone scintigraphy study dated 08/28/2021, the currently expressed an increase in tracer distribution noted in the thoracic and lumbar spine, sacrum warrants plain film x-ray evaluation. Electronically Signed: Chon Valdez, at 22:01 EDT ,
== END | disposition home or self-care (01) ==
LOC: NM 09:09
PROVIDERS: PCP Family Medicine; Referring Provider Urology; Visit Provider Urology
DX: C61 Malignant neoplasm of prostate (principal)
CPT/HCPCS: 78306; A9503

== ENCOUNTER → 2022-01-15 | Outpatient (CLI) | payer OTHER, SELFPAY ==
--- NOTE | 2022-01-15 12:38 | RAD_ITS ---
STUDY: X-RAY - LUMBAR SPINE REASON FOR EXAM: Male, 57 years old. Malignant neoplasm of the prostate. TECHNIQUE: 4 view(s) of the lumbar spine were obtained. COMPARISON: Thoracic spine, January 15, 2022. Bone scan, January 13, 2022. FINDINGS: Normal lumbar lordosis. There is no substantial scoliosis. There is a normal alignment of the vertebrae. There is multilevel endplate spondylosis of the lumbar vertebrae. There is multi-level degenerative disc disease with multi-level disc space narrowing. No spine fracture or lytic or blastic lesions are noted. There is atherosclerotic calcification of the abdominal aorta without a demonstrated aneurysm. RAD/L/S Spine Min 4 Views IMPRESSION: Degenerative changes of the lumbar spine. Electronically Signed: Orlando Zelaya DO at 17:01 EDT ,
--- NOTE | 2022-01-15 12:47 | RAD_ITS ---
STUDY: X-RAY - THORACIC SPINE REASON FOR EXAM: Male, 57 years old. Pain. Malignant neoplasm of the prostate. TECHNIQUE: 3 view(s) of the thoracic spine were obtained. COMPARISON: Bone scan, January 13, 2022. FINDINGS: Normal kyphosis of the thoracic spine. There is no substantial scoliosis. There is multilevel endplate spondylosis of the thoracic vertebrae. There is multilevel disc space narrowing of the thoracic spine. There is no evidence of acute fracture or loss of vertebral axial height. There is no distinct lytic or blastic lesions. There is evidence of cardiac pacemaker and median sternotomy. RAD/Thoracic Spine 3 Views IMPRESSION: Degenerative changes of the lumbar spine. No lytic or blastic lesions are visualized to correlate with the increased uptake seen centrally in the T11 body on bone scan. Electronically Signed: Orlando Zelaya DO at 17:02 EDT ,
== END | disposition home or self-care (01) ==
PROVIDERS: PCP Family Medicine; Referring Provider Urology; Visit Provider Urology
DX: C61 Malignant neoplasm of prostate (principal)
CPT/HCPCS: 72072; 72110

== ENCOUNTER → 2022-07-07 | Outpatient (CLI) | payer OTHER, SELFPAY ==
[2022-07-07 11:44] LABS: PSA,Total- Diagnostic < 0.01 ng/mL (0.0-4.0)
== END | disposition home or self-care (01) ==
LOC: LAB 10:35
PROVIDERS: PCP Family Medicine; Referring Provider Registered Nurse; Visit Provider Registered Nurse
DX: C61 Malignant neoplasm of prostate (principal)
CPT/HCPCS: 36415; 84153

== ENCOUNTER → 2022-10-02 | Outpatient (CLI) | payer OTHER, SELFPAY ==
[2022-10-02 11:23] LABS: PSA,Total- Diagnostic < 0.01 ng/mL (0.0-4.0)
== END | disposition home or self-care (01) ==
LOC: LAB 10:02
PROVIDERS: PCP Family Medicine; Referring Provider Registered Nurse; Visit Provider Registered Nurse
DX: C61 Malignant neoplasm of prostate (principal)
CPT/HCPCS: 36415; 84153

== ENCOUNTER → 2023-01-08 | Outpatient (CLI) | payer OTHER, SELFPAY ==
[2023-01-08 12:01] LABS: PSA,Total- Diagnostic < 0.01 ng/mL (0.0-4.0)
== END | disposition home or self-care (01) ==
LOC: LAB 10:59
PROVIDERS: PCP Family Medicine; Referring Provider Urology; Visit Provider Urology
DX: C61 Malignant neoplasm of prostate (principal)
CPT/HCPCS: 36415; 84153

== ENCOUNTER → 2023-04-06 | Outpatient (CLI) | payer OTHER, SELFPAY ==
[2023-04-06 16:10] LABS: PSA,Total- Diagnostic < 0.01 ng/mL (0.0-4.0)
== END | disposition home or self-care (01) ==
LOC: LAB 13:54
PROVIDERS: PCP Family Medicine; Referring Provider Nurse Practitioner; Visit Provider Nurse Practitioner
DX: C61 Malignant neoplasm of prostate (principal)
CPT/HCPCS: 36415; 84153

== ENCOUNTER → 2023-07-14 | Outpatient (CLI) | payer OTHER, SELFPAY ==
[2023-07-14 14:48] LABS: PSA,Total- Diagnostic 0.05 ng/mL (0.0-4.0)
== END | disposition home or self-care (01) ==
LOC: LAB 13:31
PROVIDERS: PCP Family Medicine; Referring Provider Nurse Practitioner; Visit Provider Nurse Practitioner
DX: C61 Malignant neoplasm of prostate (principal)
CPT/HCPCS: 36415; 84153

== ENCOUNTER → 2023-11-17 | Outpatient (CLI) | payer OTHER, SELFPAY | END | disposition home or self-care (01) | LOC: LABSPEC 13:57 | PROVIDERS: PCP Family Medicine; Referring Provider Nurse Practitioner; Visit Provider Nurse Practitioner | DX: R30.0 Dysuria (principal) | CPT/HCPCS: 87077; 87086; 87088; 87186 ==

== ENCOUNTER → 2024-01-27 | Outpatient (CLI) | payer OTHER, SELFPAY ==
[2024-01-27 13:07] LABS: Anion Gap 4 (5-15); BUN 15 mg/dL (7-18); BUN/Creat Ratio 19.8 RATIO (10-20); Calcium,Total 9.3 mg/dL (8.5-10.1); Chloride 109 mmol/L (98-107); Creatinine, Serum 0.76 mg/dL (0.70-1.30); EST Glomerular Filtration Rate 112 mL/min (>60); Est Glom Filt Rate - Afr Amer 136 mL/min (>60); Glucose 102 mg/dL (74-106); PSA,Total- Diagnostic 0.02 ng/mL (0.0-4.0); Potassium 3.7 mmol/L (3.5-5.1); Sodium Level 139 mmol/L (136-145)
== END | disposition home or self-care (01) ==
LOC: LAB 12:12
PROVIDERS: PCP Family Medicine; Referring Provider Urology; Visit Provider Urology
DX: C61 Malignant neoplasm of prostate (principal)
CPT/HCPCS: 36415; 80048; 84153

== ENCOUNTER → 2024-08-09 | Outpatient (CLI) | payer OTHER, SELFPAY | END | disposition home or self-care (01) | LOC: LAB 11:30 | PROVIDERS: PCP Family Medicine; Referring Provider Nurse Practitioner; Visit Provider Nurse Practitioner | DX: C61 Malignant neoplasm of prostate (principal) | CPT/HCPCS: 36415; 84153 ==

== ENCOUNTER → 2024-11-16 | Outpatient (CLI) | payer OTHER, SELFPAY ==
[2024-11-16 11:45] LABS: PSA,Total- Diagnostic 1.00 ng/mL (0.00-4.00)
== END | disposition home or self-care (01) ==
LOC: LAB 10:37
PROVIDERS: PCP Family Medicine; Referring Provider Urology; Visit Provider Urology
DX: C61 Malignant neoplasm of prostate (principal)
CPT/HCPCS: 36415; 84153

== ENCOUNTER → 2024-12-13 | Outpatient (CLI) | payer OTHER, SELFPAY ==
--- NOTE | 2024-12-13 10:00 | PET_ITS ---
PROCEDURE: PET/CT TUMOR BASE -THIGH SUBS 12/13/2024 REASON FOR EXAM: 59 y/o M with PYLARIFY Staging of prostate carcinoma. TECHNIQUE: Procedure Code: [id number] Modality: PT Procedure: PET/CT TUMOR BASE -THIGH SUBS Following the intravenous administration of radionucleotide, image acquisition on a dedicated PET/CT unit was performed at one hour post injection. A preliminary CT study encompassing the Head, neck, chest, abdomen, pelvis, and proximal thighs was performed for purposes of attenuation correction and anatomic localization. The proximal thighs were also included. RADIOPHARMACEUTICAL: 5.03 mCi Pylarify (Piflufolastat F18) - Prostate Specific Membrane Agent - IV was injected into he patient. RADIATION DOSE SUMMARY: Effective Dose: Approximately 7 mSv for a standard whole-body PET scan Organ Doses: Varies by organ, with higher doses typically to the bladder, liver, and brain COMPARISON: COMPARISON FROM CT, PET OR OTHER PERTINENT EXAMS: Pylarify PET-CT of 12/18/2021. FINDINGS: Physiologic uptake: There may be expected metabolic uptake within the brain, tongue and floor of the mouth and larynx/vocal cords, heart, tenisha (many normal individuals have hilar uptake in less than 3 nodes with mildly avid hilar nodes less than 2.7 SUV), liver and spleen, system, and GI tract and symmetric muscle uptake. FDG AVID AND NON-AVID LESIONS. Reported avid SUV values (g/mL*) are maximum SUV. NECK: There are no significant neck abnormalities. CHEST: Moderate coronary artery calcification is seen. Chest wall- There are no significant chest wall abnormalities. Axilla- There are no significant axillary abnormalities. Lung parenchyma- There are no significant lung parenchyma abnormalities. Mediastinum- There are no significant hilar or mediastinal adenopathy. Pleura- There are no significant pleural abnormalities. ABDOMEN: Moderate aortic calcification is seen; no evidence of abdominal aortic aneurysm. Stomach- No significant abnormalities. Liver- No significant abnormalities. Spleen- No significant abnormalities. Pancrease- No significant abnormalities. Kidneys- No significant abnormalities. Bowel- Normal bowel activity. Spine- No significant abnormalities. PELVIS: Moderately severe sigmoid and descending colon diverticulosis. Bowel- Normal physiologic bowel activity is identified. Masses- There are no pelvic masses. Bones- Degenerative changes are seen throughout the spine. With the use of bone window settings, there are no osteolytic or osteoblastic lesions. There are no FDG avid lesions within the visualized portion of the axial skeleton. PET/PET/CT Tumor Base -Thigh Subs IMPRESSION: FDG avid- No significant avid lesions. Other: 1. Moderately severe sigmoid and descending colon diverticulosis. 2. Moderate coronary artery calcification. 3. Moderate aortic calcification; no evidence of abdominal aortic aneurysm. 4. Degenerative changes are seen throughout the spine. Please note the low-dose CT scan was performed to facilitate PET image reconstr uction and anatomic localization and does not replace a diagnostic CT. Any diagnostic CT requested and performed at the time of the PET will be reported separately. Reading Location: [id number]
== END | disposition home or self-care (01) ==
LOC: ONC 09:22
PROVIDERS: PCP Family Medicine; Referring Provider Urology; Visit Provider Urology
DX: C61 Malignant neoplasm of prostate (principal); R97.21 Rising PSA following treatment for malignant neoplasm of prostate
CPT/HCPCS: 78815; A9595

== ENCOUNTER → 2025-02-20 | Outpatient (CLI) | payer OTHER, SELFPAY ==
[2025-02-20 15:47] LABS: PSA,Total- Diagnostic 2.39 ng/mL (0.00-4.00)
== END | disposition home or self-care (01) ==
LOC: LAB 14:26
PROVIDERS: PCP Family Medicine; Referring Provider Urology; Visit Provider Urology
DX: C61 Malignant neoplasm of prostate (principal)
CPT/HCPCS: 36415; 84153